=== PATIENT | male | born 1940 | race Caucasian/White ===

== ENCOUNTER → 2018-03-11 12:14 | Outpatient (CLI) | payer MEDICARE, OTHER ==
--- NOTE | ~2018-03-11 | ST ---
PATIENT:ANNAMARIA BROOKE MEDICAL RECORD: [id number] SEX: M LOCATION:[facility] ORDER #: ADMISSION DATE: 03/11/18 AGE OF PATIENT: 77 REFERRING PHYSICIAN: INTERPRETING PHYSICIAN: AZEEM CHAIDEZ MD DATE OF SERVICE: 03/11/2018 PROCEDURE: Nuclear stress test. INDICATION: Angina, diabetes, peripheral vascular disease. PROCEDURE DETAILS: She was exercised on standard Lexiscan protocol with 31.2 mCi of sestamibi injected at peak stress, 10.2 mCi were used previously for rest images. FINDINGS: Gated SPECT reveals preserved ejection fraction at 53% with good wall motion and thickening and brightening throughout all segments. SPECT imaging Cardiolite was used as myocardial fusion agent. There has been definite reversible ischemia inferiorly. This includes the basal, mid apical inferior segments. The degree of reversibility is moderate. The amount of myocardial involved is moderate. OVERALL IMPRESSION: 1. This is an abnormal nuclear stress test with moderate area of reversibility inferiorly. 2. Gated SPECT reveals preserved ejection fraction greater than 50% in this patient with ongoing symptomatology. The current scan does suggest the presence of hemodynamically significant coronary artery disease. We would proceed with coronary angiography as followup study. TRANSINT:[id number] Voice Confirmation ID: [id number] DOCUMENT ID: [id number] CC: ANTONINO Robert AZEEM CHAIDEZ MD CC: RIZWANA PARSONS [id number] DICTATION DATE: 03/12/18 1126 CARPET WINDER: 03/13/18 0217 DEP CLI 03/11/18 [place] [address]
== END | disposition home or self-care (01) ==
LOC: D.HCCARDIO 12:14
DX: I20.9 Angina pectoris, unspecified (principal)

== ENCOUNTER 2018-03-19 11:08 | Outpatient (CLI) | payer MEDICARE, OTHER ==
[~2018-03-19] VITALS: Ht 188 cm; Wt 109.1 kg
--- NOTE | ~2018-03-19 | HP ---
PATIENT: ANNAMARIA BROOKE MEDICAL RECORD: [id number] ACCOUNT: [id number] LOCATION:[facility] : 42 ADMISSION DATE: 03/19/18 PCP: RAMANA BRADFORD HISTORY AND PHYSICAL EXAMINATION HISTORY: A 77-year-old patient with history of hypertension, hyperlipidemia, and peripheral vascular disease, presented to the office with angina. He underwent Cardiolite stress testing, showed EF at lower limits of normal at 50% and an inferior reversible ischemia. Given risk factors and continued angina, he is brought to laborer/key man for visualization of anatomy. MEDICATIONS: Include atorvastatin 40 daily, benazepril 20 daily, glipizide 10 daily, Synthroid 150 daily, and metformin 500 b.i.d. PHYSICAL EXAMINATION: GENERAL: Pleasant and in no acute distress. Appears stated age. VITAL SIGNS: Blood pressure 154/64, pulse 70 and regular. HEENT: Normocephalic and atraumatic. NECK: No JVD or bruit. HEART: Regular. LUNGS: Norton are clear. ABDOMEN: Soft and nontender. EXTREMITIES: Pulses 2+ with no edema. IMPRESSION: Continued angina with positive noninvasive study. PLAN: Diagnostic angiography. TRANSINT:[id number] Voice Confirmation ID: [id number] DOCUMENT ID: [id number] AARON SIMEON MD CC: [id number] DICTATION DATE: 03/19/18 1445 PROFESSIONAL GOLF TOURNAMENT PLAYER: 03/19/18 1553 [facility] [address] [place] [address]
--- NOTE | ~2018-03-19 | HEMODYNAMI ---
PATIENT:ANNAMARIA BROOKE MEDICAL RECORD: [id number] : 44 LOCATION:[facility] ADMISSION DATE: 03/19/18 Generatedon:03/19/201815:06 Patient name: ANNAMARIA BROOKE Patient #: [id number] SSN: : 1940 Date of study: 03/19/2018 Page: Of Hemodynamic Procedure Report Patient Data Patient Demographics Procedure consent was obtained First Name: ANNAMARIA Gender: Male Last Name: EDWARDO : 1940 [facility] Initial: LILIAN Age: 77 year(s) Patient #: [id number] Race: Unknown Additional ID: [id number] Contact details [address]: [address] [place] [address] State: [place] City: [place] Zip code: [address] Past Medical History Allergies: No known allergies Admission Admission Data Admission Date: 03/19/2018 Admission Time: 11:08 Procedure Procedure Types Cath Procedure Diagnostic Procedure LHC LHC w/Coronaries Sedation Charges Moderate Sedation up to 15 minutes Procedure Description Procedure Date Procedure Date: 03/19/2018 Procedure Start Time: 14:51 Procedure End Time: 15:05 Procedure Staff Name Function Selvin Vásquez MD Performing Physician Joon Hawkins RT Nicking Machine Operator Nirmala Paulino RT Monitor Sapna Norton RT Scrub Yamile Chapman RN Nurse Procedure Data Cath Procedure Fluoroscopy Diagnostic fluoroscopy Total fluoroscopy Time: 3.1 time: 3.1 min min Diagnostic fluoroscopy Total fluoroscopy dose: 856 dose: 856 mGy mGy Contrast Material Contrast Material Type Amount (ml) Isovue 300 51 Entry Location Entry Primary Successful Side Size Upsize Upsize Entry Closure Lopez ccessful Closure Location (Fr) 1 (Fr) 2 (Fr) Remarks Device Remarks Radial Right 6 Fr Mechanical artery Short Compression Estimated blood loss: 10 ml Diagnostic catheters Device Type Used For End Catheter Placement DIAGNOSTIC Nate 110cm Procedure 5Fr catheter ([id number]) DIAGNOSTIC AR1 MOD 5Fr Procedure catheter ([id number]) Procedure Complications No complications Procedure Medications Medication Administration Route Dosage 0.9% NaCl I.V. 100 ml/hr Oxygen etCO2 Nasal cannula 2 l/min Lidocaine 2% added to field 20 Heparin Flush Bag added to field 2 bags (1000units/500ml NS) Radial Cocktail added to field 1 syringe (Verapomil 2mg/Nitro 400mcg/Heparin 1500units) Versed I.V. 2 mg Fentanyl I.V. 50 mcg Versed I.V. 1 mg Fentanyl I.V. 25 mcg Hemodynamics Rest Heart Rate: 51 (bpm) Pressure Samples Time Site Value (mmHg) Purpose Heart Use Rate(bpm) 14:54 LV 114/12,15 Snapshot 54 14:54 AO 110/68(85) Pullback 60 14:54 LV 125/12,17 Pullback 60 Gradients Valve Time Site 1 Site 2 Mean SEP/DFP Peak To Heart Use (mmHg) (sec/min) Peak Rate (mmHg) (bpm) Aortic 14:54 LV AO 11 16 15 60 125/12,17 110/68(85) Calculations Valve P-P Mean Valve Index Valve Source Name Gradient Area Flow (cm2) Aortic 15 11 15 11 Snapshots Pre Cath Intra NCS Post Cath Vital Signs Time Heart Resp SPO2 etCO2 NIBP (mmHg) Rhythm Pain Sedation Rate (ipm) (%) (mmHg) Status Level (bpm) 14:32:09 54 12 99 30.7 155/75(122) NSR 0 (11) 10(A) , No pain 14:37:29 52 14 97 35 136/66(95) NSR 0 (11) 10(A) , No pain 14:41:49 52 17 96 22.5 123/64(87) NSR 0 (11) 10(A) , No pain 14:46:09 52 14 96 24 130/58(86) NSR 0 (11) 10(A) , No pain 14:50:31 55 16 96 9.7 139/60(96) NSR 0 (11) 9(A) , No pain 14:54:51 61 10 97 33.8 132/64(89) NSR 0 (11) 9(A) , No pain 15:00:02 59 10 96 18 123/58(81) NSR 0 (11) 9(A) , No pain 15:04:23 56 10 96 29.2 127/61(95) NSR 0 (11) 9(A) , No pain Medications Time Medication Route Dose Verified Delivered Reason Notes E ffectiveness by by 14:31:03 0.9% NaCl I.V. 100 Selvin Yamile used for ml/hr Thalia Ari procedure MD ALLRED 14:31:10 Oxygen etCO2 2 l/min Selvin Yamile used for Nasal [facility] procedure cannula MD ALLRED 14:31:15 Lidocaine 2% added 20ml Selvin Montalvo for local to vial [facility] anesthetic field MD PORRAS 14:31:20 Heparin Flush added 2 bags Selvin Montalvo used for Bag to [facility] procedure (1000units/500ml field MD PORRAS NS) 14:31:26 Radial Cocktail added 1 Selvin Montalvo used for (Verapomil to syringe [facility] procedure 2mg/Nitro field MD PORRAS 400mcg/Heparin 1500units) 14:43:14 Versed I.V. 2 mg Selvin Yamile for [facility] Reji Chapman sedation MD ALLRED 14:43:26 Fentanyl I.V. 50 mcg Selvin Marinyla for ThaliaReji Chapman sedation MD ALLRED 14:48:38 Versed I.V. 1 mg Selvin Yamile for Alma Ari sedation MD ALLRED 14:48:43 Fentanyl I.V. 25 mcg Selvin Yamile for ThaliaReji Chapman sedation MD ALLREDper diem clerk Log Time Note 14:15:40 Joon Hawkins RT(R) sent for patient. Start room use. 14:15:41 Time tracking: Regular hours (M-F 7:00 - 5:00) 14:15:44 Plan of Care:Hemodynamics will remain stable., Cardiac rhythm will remain stable., Comfort level will be maintained., Respiratory function will remain adequate., Patient/ family verbilizes understanding of procedure., Procedure tolerated without complication., Recovers from procedure without complications.. 14:15:47 Signed procedure consent form obtained from patient. 14:30:54 Vital chart was started 14:31:03 0.9% NaCl 100 ml/hr I.V. was administered by Yamile Chapman RN; used for procedure; 14:31:10 Oxygen 2 l/min etCO2 Nasal cannula was administered by Yamile Chapman RN; used for procedure; 14:31:15 Lidocaine 2% 20ml vial added to field was administered by Selvin Vásquez MD; for local anesthetic; 14:31:20 Heparin Flush Bag (1000units/500ml NS) 2 bags added to field was administered by Selvin Vásquez MD; used for procedure; 14:31:26 Radial Cocktail (Verapomil 2mg/Nitro 400mcg/Heparin 1500units) 1 syringe added to field was administered by Selvin Vásquez MD; used for procedure; 14:33:41 Patient received from Pre/Post Procedure Room to CCL 1 Alert and oriented. Tansferred to table in Supine position. 14:33:43 Warm blankets applied, and rosalie hugger turned on for patient comfort. 14:33:43 Correct patient and procedure confirmed by team. 14:33:45 ECG and BP/O2 sat monitors applied to patient. 14:36:57 Baseline sample Acquired. 14:37:07 Rhythm: sinus rhythm 14:37:10 Full Disclosure recording started 14:37:20 H&P Date Dictated: 03/18/2018 Within 30 days and on chart., H&P Addendum completed by physician on day of procedure. (MUST COMPLETE FOR ALL OUTPATIENTS). 14:37:30 Pre-procedure instructions explained to patient. 14:37:36 Family in waiting room. 14:37:38 Patient NPO since Midnight. 14:37:50 Patient allergic to No known allergies 14:37:55 Is the patient allergic to Iodine/contrast media? No. 14:37:57 Was the patient premedicated? Yes 14:38:00 Is patient on blood thinner?No 14:38:08 Snore? Yes 14:38:15 Patient diabetic? Yes. 14:38:16 If diabetic: On Metformin? Yes 14:38:21 If on Metformin: Last Dose? 03/17/2018 14:38:25 Sleep apnea? No 14:38:33 Dentures? No ? 14:38:38 Patient pain scale 0/10 ?. 14:38:47 IV patent on arrival in left forearm with 0.9% NaCl at [facility]. 14:38:53 Lab results completed and on chart. 14:38:58 Right Radial & Right Groin area was prepped with chlora-prep and draped in sterile fashion 14:39:00 Alarms reviewed by R. N. 14:39:01 Sharps counted by scrub and verified by R.N. 14:39:02 Physician paged 14:42:57 Physician arrived 14:42:58 --------ALL STOP TIME OUT------ 14:42:59 Final Timeout: patient, procedure, and site verified with staff and physician. All members of the team are in agreement. 14:43:02 Right Radial & Right Groin site verified by team. 14:43:06 Physical assessment completed. ASA score P 2 - A patient with mild systemic disease as per Selvin Vásquez MD. 14:43:12 Sedation plan: IV Moderate Sedation Medication:Versed, Fentanyl 14:43:14 Versed 2 mg I.V. was administered by Yamile Chapman RN; for sedation; 14:43:26 Fentanyl 50 mcg I.V. was administered by Yamile Chapman RN; for sedation; 14:48:38 Versed 1 mg I.V. was administered by Yamile Chapman RN; for sedation; 14:48:43 Fentanyl 25 mcg I.V. was administered by Yamile Chapman RN; for sedation; 14:51:28 Use device set Radial Dx or PCI 14:51:31 Procedure started. 14:51:46 Local anesthetic to right radial artery with Lidocaine 2% by Selvin Vásquez MD.INITIAL ACCESS ONLY 14:51:56 A 6 Fr Short sheath was inserted into the Right Radial artery 14:52:43 ACIST Syringe (29707) opened to sterile field. 14:52:44 Medline Cath Pack ([id number]) opened to sterile field. 14:52:45 Bag Decanter (2002) opened to sterile field. 14:52:46 DIAGNOSTIC WIRE .035 260cm J wire (894073) opened to sterile field. 14:52:47 ACIST Hand Control (61680) opened to sterile field. 14:52:47 ACIST Manifold (07244) opened to sterile field. 14:52:48 Tegaderm 4 x 4 (1626W) opened to sterile field. 14:52:52 MBrace Wrist Support ([id number]) opened to sterile field. 14:52:55 SHEATH 6FR Slender (84-4399) opened to sterile field. 14:53:30 A DIAGNOSTIC Nate 110cm 5Fr catheter (379540) was advanced over the wire and used for Procedure. 14:54:17 LV angiography performed. 14:54:21 LV gram done using HERNANDEZ 14:54:55 EF : 55 % 14:55:28 LCA angiography performed. 14:59:16 Catheter removed. 14:59:57 A DIAGNOSTIC AR1 MOD 5Fr catheter ([id number]) was advanced over the wire and used for Procedure. 15:01:02 RCA angiography performed. 15:01:03 Catheter removed. 15:02:13 TR BAND Standard ([id number]) opened to sterile field. 15:03:17 Sheath removed intact; hemostasis achieved with Mechanical Compression to the Right Radial artery. 15:03:20 Procedure ended.(Physican Out) 15:03:32 Fluoroscopy time 03.10 minutes. 15:03:38 Fluoroscopy dose: 856 mGy 15:03:38 Flurop Dose total: 856 15:03:44 Contrast amount:Isovue 300 51ml. 15:03:50 Sharps counted by scrub and verified by R.N. 15:03:53 TR band inflated with 8cc of air. 15:03:55 Insertion/operative site no bleeding no hematoma. 15:04:01 Post right femoral artery:stable 15:04:29 Post Procedure Pulses reassessed and unchanged 15:04:33 Post-procedure physical assessment completed. ASA score P 2 - A patient with mild systemic disease as per Selvin Vásquez MD. 15:04:35 Post procedure rhythm: unchanged. 15:04:39 Estimated blood loss: 10 ml 15:04:42 Post procedure instruction explained to patient.Patient verbalizes understanding. 15:05:08 Procedure type changed to Cath procedure, Diagnostic procedure, LHC, LHC w/Coronaries, Sedation Charges, Moderate Sedation up to 15 minutes 15:05:12 Procedure and supply charges have been captured, reviewed, submitted and are correct. 15:05:39 Procedure Complication : No complications 15:05:43 Vital chart was stopped 15:05:45 See physician's report for complete and final results. 15:05:47 Report given to Pre/Post Procedure Room. 15:05:51 Patient transfered to Pre/Post Procedure Room with Stretcher. 15:05:53 Procedure ended. 15:05:53 Full Disclosure recording stopped 15:05:56 End room use (Document Last) Device Usage Item Name Manufacture Quantity Catalog Hospital Part Current Minimal Lot# / Number Charge Number Stock Stock Serial# Code ACIST Acist 1 18339 627303 714484 822395 20 Syringe Medical (12800) Systems Inc Medline Medline 1 [id number] 265074 85478 615003 5 Cath Pack ([id number]) Bag Microtek 1 2001S 577843 11919 876734 5 Decanter Medical Inc. (2001S) DIAGNOSTIC St Jm 1 613829 687816 313903 635648 30 WIRE .035 260cm J wire (600608) ACIST Hand Acist 1 72951 227508 344102 434246 5 Control Medical (39443) Systems Inc ACIST Acist 1 50078 113911 248391 149992 5 Manifold Medical (14595) Systems Inc Tegaderm 4 3M 1 1626W 126363 155948 524340 5 x 4 (1626W) MBrace Advanced 1 140-0250-00 585187 10982 029844 5 Wrist Vascular Support Dynamics ([id number]) SHEATH 6FR Terumo 1 [id number] 580445 456402 314531 5 Slender (80-1060) DIAGNOSTIC Terumo 1 40-5023 361293 490239 152369 5 Nate 110cm 5Fr catheter (192095) DIAGNOSTIC Cardinal 1 [id number] 329995 988983 308530 15 AR1 MOD 5Fr Health catheter (269080L) TR BAND Terumo 1 [id number] 690185 165548 273053 40 Standard ([id number]) Signature Audit [place] Stage Time Signature Unsigned Intra-Procedure 03/19/2018 Nirmala Paulino 3:06:23 PM RT(R) Signatures Monitor : Nirmala Paulino Signature : RT Date : Time : [place] [address] [place] [address]
--- NOTE | ~2018-03-19 | OP ---
PATIENT NAME: ANNAMARIA BROOKE MEDICAL RECORD: [id number] :44 LOCATION:D.CAT ADMISSION DATE: SURGEON: AARON SIMEON MD DATE OF OPERATION: 03/19/2018 PROCEDURE: Left heart catheterization, selective coronary angiography, right radial approach. CATHETERS: Include Lyndon catheter and radial sheath. The procedure was well tolerated. The patient was returned to the pagan. Sheath was removed. TR band was placed. FINDINGS: Left ventriculography in 30-degree HERNANDEZ view: Normal wall motion. Normal systolic function. CORONARY ANATOMY: LEFT MAIN: Left main is free of disease. LAD: Free of disease in the diagonal system. CIRCUMFLEX: Free of disease in the marginal system. RIGHT CORONARY ARTERY: Totally occluded. Fills well via left to right collaterals. IMPRESSION: Single vessel disease, correlating nicely with nuclear study. Given total occlusion, plan for medical management. TRANSINT:[id number] Voice Confirmation ID: [id number] DOCUMENT ID: [id number] AARON SIMEON MD CC: [id number] DICTATION DATE: 03/19/18 1511 LINE DIRECTOR: 03/19/18 1640 [facility] [address] [place] [address]
[2018-03-19] MEDS ORDERED: LEVOTHYROXINE200 MCG PO (11:43)
[2018-03-19] MEDS ORDERED: PENICILLIN V P500 MG PO (11:44)
[2018-03-19] MEDS ORDERED: VALIUM5 MG PO (11:45)
[2018-03-19] MEDS ORDERED: METFORMIN HCL500 M1 PO (11:45)
[2018-03-19] MEDS ORDERED: LIPITOR40 MG PO (11:46)
[2018-03-19] MEDS ORDERED: COZAAR25 MG PO ×2 (11:47→11:48)
[2018-03-19] MEDS ORDERED: GLIPIZIDE10 MG PO ×2 (11:47→11:50)
[2018-03-19] MEDS ORDERED: ASPIRIN EC81 M1 PO (11:47)
[2018-03-19] MEDS ORDERED: FERROUS SULFAT325 MG PO (11:48)
[2018-03-19] MEDS ORDERED: NAPROSYN500 MG PO (11:48)
[2018-03-19] MEDS ORDERED: MELATONIN5 MG PO (11:49)
[2018-03-19] MEDS ORDERED: CYCLOBENZAPRINE10 MG PO (11:49)
[2018-03-19 11:52] VITALS: BP 140/59; Ht 188 cm; Wt 109.1 kg
[2018-03-19 12:02] LABS: BASOPHILS 1.2 % (0-2); HEMATOCRIT 41.4 % (42.0-54.0); HEMOGLOBIN 14.4 g/dL (13.5-17.5); IMMATURE GRANULOCYTES 0.4 % (0-5); LYMPHOCYTES 25.1 % (15-50); MCH 33.9 pg (26.0-34.0); MCHC 34.8 g/dL (31.0-37.0); MCV 97.4 fL (80.0-100.0); MEAN PLATELET VOLUME 10.5 fL (7.4-10.4); MONOCYTES 13.2 % (2-11); NEUTROPHILS 55.1 % (40-80); PLATELET COUNT 171 10x3/uL (130-400); RBC 4.25 10x6/uL (4.20-6.10); RDW 13.5 % (11.5-14.5); WBC 5.6 10x3/uL (4.8-10.8)
[2018-03-19 12:16] LABS: ANION GAP 17.8 mmol/L (8-16); CALCIUM 9.2 mg/dL (8.5-10.1); CARBON DIOXIDE 22.6 mmol/L (21.0-32.0); CREATININE - SERUM 1.1 mg/dL (0.6-1.3); POTASSIUM - SERUM 4.4 mmol/L (3.5-5.1)
== END 2018-03-19 17:05 | disposition home or self-care (01) ==
LOC: D.CATH 11:08
PROVIDERS: Internal Medicine Interventional Cardiology
DX: I25.119 Atherosclerotic heart disease of native coronary artery with unspecified angina pectoris (principal); I10 Essential (primary) hypertension; E78.5 Hyperlipidemia, unspecified; I73.9 Peripheral vascular disease, unspecified; Z79.84 Long term (current) use of oral hypoglycemic drugs; Z79.899 Other long term (current) drug therapy; Z01.812 Encounter for preprocedural laboratory examination